=== PATIENT | female | born 1985 | race Caucasian/White ===

== ENCOUNTER 2022-11-12 05:30 | Day surgery (SDC) | payer OTHER ==
[~2022-11-12] VITALS: Ht 170.2 cm; Wt 70.3 kg
[~2022-11-12 05:30] MED LIST: PERCOCET 5/3251 TAB PO
[2022-11-12] MEDS ORDERED: NAPR500T14 PO (08:16)
[2022-11-12] MEDS ORDERED: MORGIDOX100 MG PO (08:16)
== END 2022-11-12 10:05 | disposition home or self-care (01) ==
LOC: CIR.AMB 05:30
PROVIDERS: ATTEND Obstetrics & Gynecology
DX: N92.0 Excessive and frequent menstruation with regular cycle (principal); N84.0 Polyp of corpus uteri; D25.0 Submucous leiomyoma of uterus; Z20.822 Contact with and (suspected) exposure to COVID-19